=== PATIENT | female | born 1950 | race Caucasian/White ===

== ENCOUNTER 2018-08-09 09:18 | Inpatient (IN) | payer OTHER ==
[2018-08-01 15:38] LABS: BASOPHILS % (AUTO) 0.2 % (0-1); EOSINOPHILS % (AUTO) 0.7 % (0-6); LYMPHOCYTES # (AUTO) 1.2 X10'3 (1.1-4.8); MEAN CORPUSCULAR HEMOGLOBIN 28.8 PG (27.0-31.0); MEAN CORPUSCULAR HGB CONC 32.2 % (33.0-36.5); MEAN CORPUSCULAR VOLUME 89.5 FL (78-98); MEAN PLATELET VOLUME 7.5 FL (7.4-10.4); MONOCYTES # (AUTO) 0.4 X10'3 (0-0.9); MONOCYTES % (AUTO) 6.4 % (2-12); NEUTROPHILS # (AUTO) 5.1 X10'3 (1.8-7.7); NEUTROPHILS % (AUTO) 75.7 % (42-75); PRE OP HEMATOCRIT 41.7 % (35.0-45.0); PRE OP HEMOGLOBIN 13.4 g/dL (12.0-16.0); PRE OP PLATELET COUNT 325 X10'3 (140-440); RED BLOOD COUNT 4.66 X10'6 (4.20-5.60); RED CELL DISTRIBUTION WIDTH 14.8 % (11.5-14.5)
[2018-08-01 15:54] LABS: ALBUMIN 3.6 G/DL (3.4-5.0); ALBUMIN/GLOBULIN RATIO 1.1 (1.1-1.5); ALKALINE PHOSPHATASE 76 IU/L (46-116); BLOOD UREA NITROGEN 25 MG/DL (7-18); BUN/CREATININE RATIO 22.5 (6.6-38.0); CALCIUM 9.1 MG/DL (8.5-10.1); CHLORIDE 104 MMOL/L (99-107); CREATININE 1.11 MG/DL (0.40-0.90); PRE OP ALT 19 U/L (30-65); PRE OP ANION GAP 5 (8-16); PRE OP AST 12 U/L (10-37); PRE OP BILIRUB, TOTAL 0.2 MG/DL (0.0-1.0); PRE OP GLUCOSE 107 MG/DL (70-104); PRE OP POTASSIUM 4.1 MMOL/L (3.4-5.1); PRE OP SODIUM 142 MMOL/L (135-145); TOTAL CARBON DIOXIDE 32.7 MMOL/L (24-32); TOTAL PROTEIN 6.9 G/DL (6.4-8.2); eGFR 49 ML/MIN
[2018-08-01 16:02] LABS: CLARITY,URINE CLEAR (Clear); COLOR,URINE YELLOW (Yellow); GLUCOSE, URINE NEGATIVE (Neg); KETONES,URINE NEGATIVE (Neg); LEUKOCYTE ESTERASE ,URINE NEGATIVE (Neg); NITRITES, URINE NEGATIVE (Neg); OCCULT BLOOD,URINE TRACE-INTACT (Neg); PROTEIN,URINE NEGATIVE (Neg); UROBILINOGEN,URINE 0.2 E.U/dL (0.2-1.0)
[2018-08-01 16:11] LABS: UA COLLECTION TYPE CLN CATCH MIDSTREAM
[2018-08-01 16:13] LABS: BACTERIA,URINE FEW /HPF (Neg); RBC,URINE 0-2 /HPF (0-2); SQUAMOUS EPITHELIAL CELL,UR FEW /LPF (FEW); WBC,URINE NONE SEEN /HPF (0-4)
[2018-08-07 16:30] VITALS: BP 89/54
[2018-08-07 17:00] VITALS: BP 100/45
[2018-08-07 17:30] VITALS: BP 97/52
[2018-08-09] VITALS (15 sets, daily range): BP systolic 82–125; BP diastolic 43–86
[~2018-08-09] VITALS: Ht 162.6 cm; Wt 84.8 kg
[2018-08-09] MEDS: acetaminophen 325mg tablet PO ONE ×2 (05:30→10:02)
[2018-08-09] MEDS: ascorbic acid 500mg tablet PO SCH ×2 (08:00→20:11)
[2018-08-09] MEDS: multivitamins, therapeutics tablet PO SCH (08:00)
[2018-08-09] MEDS: gabapentin 300mg capsule PO SCH ×3 (08:00→20:11)
[2018-08-09] MEDS: aspirin 325mg tablet PO SCH (08:30)
[~2018-08-09 09:18] MED LIST: ACET-2119 PO; ASPI-1140 PO; BACL10TA2 PO; CALC600T12 PO; DIPH25CA83 PO; HYDR-3972 PO; HYDROmorphone 1 mg/ml syringe IV PRN; MAGN400C PO; OMEP-50 PO; TRAZ-219 PO; acetaminophen 325mg tablet PO PRN; baclofen 10mg tablet PO PRN; bisacodyl 10mg suppository rectal RC PRN; cefazolin/dext.iso 2gm/100 ML IV ONE; cefazolin/dext.iso 2gm/50ml 50 ML IV SCH; diphenhydrAMINE 25mg capsule PO PRN; famotidine 20mg tablet PO ONE; gabapentin 300mg capsule PO ONE; magnesium hydroxide 30ml (MOM) UD suspension PO PRN; metoclopramide 5 mg/ml inj IV ONE; non-formulary drug (Omeprazole 1 TAB) PO SCH; oxyCODONE SR 10mg (sust. release) tab -2 tabs (20mg) PO ONE; oxyCODONE/APAP 5-325mg tablet PO PRN; ringers solution, lacted 1,000 ML IV SCH; tranexamic acid inj. 1,000 MG in normal saline 100ml IV soln 90 ML IV ONE; vancomycin inj 1,500 MG in normal saline 300ml IV soln IV ONE
[2018-08-09] MEDS ORDERED: LIDOcaine 1% (10mg/ml) 2ml vial ONE (09:45)
[2018-08-09] MEDS ORDERED: ringers solution, lacted 1,000 ML IV SCH (10:06)
[2018-08-09] MEDS ORDERED: celeCOXIB 100mg capsule PO ONE (10:09)
[2018-08-09] MEDS ORDERED: morphine 4 MG/ML inj SYRINge IV PRN ×2 (10:10)
[2018-08-09] MEDS ORDERED: ondansetron/PF 4mg/2ml inj IV PRN (10:10)
[2018-08-09] MEDS ORDERED: meperidine/PF 25mg/ml syringe IV PRN ×3 (10:10)
[2018-08-09] MEDS ORDERED: proCHLORperazine 10 MG/2 ml inj IV PRN (10:10)
[2018-08-09] MEDS ORDERED: ketorolac trometh. 30mg/ml inj. ONE (11:43)
[2018-08-09] MEDS ORDERED: MIDAZolam 1mg/ml 10ml vial ONE (11:43)
[2018-08-09] MEDS ORDERED: fentaNYL/PF 50MCG/1 ML 2ML syringe ONE (11:43)
[2018-08-09] MEDS ORDERED: cloNIDine hcl/PF 100mcg/ml inj ONE (11:44)
[2018-08-09] MEDS ORDERED: ROPIVAcaine 0.5% (5mg/ml) 30ml vial ONE ×2 (11:44→14:07)
[2018-08-09] MEDS ORDERED: epiNEPHrine 1 mg/ml inj ONE (11:44)
[2018-08-09] MEDS ORDERED: vancomycin 1,000mg inj ONE (11:44)
[2018-08-09] MEDS ORDERED: BUPIVAcaine/dex-water/PF 7.5 mg/ml 2ml ampul ONE (12:29)
[2018-08-09] MEDS ORDERED: propofol inj 20 ML IV ONE (12:33)
[2018-08-09] MEDS: potassium cl 20mEq in 1/2 NS 1,000 ML IV SCH ×3 (15:24→23:24)
[2018-08-09] MEDS: cefazolin/dext.iso 2gm/50ml 50 ML IV SCH (19:00)
[2018-08-09] MEDS ORDERED: tranexamic acid inj. 1,000 MG in normal saline 100ml IV soln 100 ML IV ONE (19:30)
[2018-08-09] MEDS: sennosides 8.6mg tablet PO SCH (20:11)
[2018-08-09] MEDS: magnesium oxide 400mg tablet PO SCH (20:11)
[2018-08-09] MEDS: oxyCODONE/APAP 10/325mg tablet PO PRN (20:12)
[2018-08-09] MEDS: traZODone 50mg tablet PO SCH (20:12)
[2018-08-09] MEDS ORDERED: non-formulary drug (Trazodone HCl 1 TAB) PO SCH (21:00)
[2018-08-09] MEDS ORDERED: non-formulary drug (Magnesium Oxide (Magnesium) 2 CAP) PO SCH (21:00)
[2018-08-09] MEDS: HYDROmorphone 1 mg/ml syringe IV PRN (21:51)
[2018-08-10] MEDS: oxyCODONE/APAP 10/325mg tablet PO PRN ×6 (00:18→23:44)
[2018-08-10 02:00] VITALS: BP 109/54
[2018-08-10] MEDS: cefazolin/dext.iso 2gm/50ml 50 ML IV SCH ×3 (02:51→19:35)
[2018-08-10 06:00] VITALS: BP 123/67
[2018-08-10] MEDS: aspirin 325mg tablet PO SCH (07:46)
[2018-08-10] MEDS: ascorbic acid 500mg tablet PO SCH ×2 (07:46→19:36)
[2018-08-10] MEDS: gabapentin 300mg capsule PO SCH ×3 (07:46→22:14)
[2018-08-10] MEDS: multivitamins, therapeutics tablet PO SCH (07:46)
[2018-08-10] MEDS: pantoprazole 40mg Tablet.DR PO SCH (07:46)
[2018-08-10] MEDS: potassium cl 20mEq in 1/2 NS 1,000 ML IV SCH ×3 (07:47→22:13)
[2018-08-10 07:48] LABS: BASOPHILS % (AUTO) 0.1 % (0-1); EOSINOPHILS # (AUTO) 0.1 X10'3 (0-0.9); EOSINOPHILS % (AUTO) 0.9 % (0-6); HEMATOCRIT 36.2 % (35.0-45.0); HEMOGLOBIN 11.6 g/dl (12.0-16.0); LYMPHOCYTES # (AUTO) 0.8 X10'3 (1.1-4.8); LYMPHOCYTES % (AUTO) 7.9 % (21-51); MEAN CORPUSCULAR HEMOGLOBIN 28.9 PG (27.0-31.0); MEAN CORPUSCULAR HGB CONC 32.2 % (33.0-36.5); MEAN CORPUSCULAR VOLUME 89.9 FL (78-98); MEAN PLATELET VOLUME 8.1 FL (7.4-10.4); MONOCYTES # (AUTO) 0.5 X10'3 (0-0.9); NEUTROPHILS # (AUTO) 8.9 X10'3 (1.8-7.7); NEUTROPHILS % (AUTO) 86.1 % (42-75); PLATELET COUNT 230 X10'3 (140-440); RED BLOOD COUNT 4.03 X10'6 (4.20-5.60); RED CELL DISTRIBUTION WIDTH 14.2 % (11.5-14.5); WHITE BLOOD COUNT 10.3 X10'3 (4.5-11.0)
[2018-08-10 09:04] LABS: TOTAL CARBON DIOXIDE 27.4 MMOL/L (24-32)
[2018-08-10 09:24] LABS: ANION GAP 9 (8-16); CHLORIDE 105 MMOL/L (99-107); POTASSIUM 4.5 MMOL/L (3.5-5.1); SODIUM 139 MMOL/L (135-145)
[2018-08-10] MEDS ORDERED: ASPI-1 PO (09:37)
[2018-08-10 10:00] VITALS: BP 131/56
[2018-08-10] MEDS: ondansetron/PF 4mg/2ml inj IV PRN ×2 (12:17→19:36)
[2018-08-10 14:00] VITALS: BP 135/53
[2018-08-10 18:00] VITALS: BP 129/55
[2018-08-10] MEDS: lactobacillus rhamnosus 10,000 MMU CELLS/CAPSULE PO SCH (19:36)
[2018-08-10] MEDS: celeCOXIB 100mg capsule PO SCH (19:36)
[2018-08-10] MEDS: sennosides 8.6mg tablet PO SCH (21:00)
[2018-08-10 22:00] VITALS: BP 147/62
[2018-08-10] MEDS: HYDROmorphone 1 mg/ml syringe IV PRN (22:12)
[2018-08-10] MEDS: magnesium oxide 400mg tablet PO SCH (22:14)
[2018-08-10] MEDS: traZODone 50mg tablet PO SCH (22:14)
[2018-08-11] MEDS: HYDROmorphone 1 mg/ml syringe IV PRN (02:27)
[2018-08-11] MEDS: cefazolin/dext.iso 2gm/50ml 50 ML IV SCH (02:32)
[2018-08-11] MEDS: oxyCODONE/APAP 10/325mg tablet PO PRN ×3 (04:48→14:08)
[2018-08-11 06:00] VITALS: BP 131/69
[2018-08-11 06:24] LABS: BASOPHILS % (AUTO) 0.2 % (0-1); EOSINOPHILS # (AUTO) 0.1 X10'3 (0-0.9); HEMATOCRIT 35.9 % (35.0-45.0); HEMOGLOBIN 11.7 g/dl (12.0-16.0); LYMPHOCYTES # (AUTO) 0.9 X10'3 (1.1-4.8); LYMPHOCYTES % (AUTO) 10.3 % (21-51); MEAN CORPUSCULAR HEMOGLOBIN 29.1 PG (27.0-31.0); MEAN CORPUSCULAR HGB CONC 32.5 % (33.0-36.5); MEAN CORPUSCULAR VOLUME 89.5 FL (78-98); MEAN PLATELET VOLUME 7.8 FL (7.4-10.4); MONOCYTES # (AUTO) 0.8 X10'3 (0-0.9); MONOCYTES % (AUTO) 8.8 % (2-12); NEUTROPHILS % (AUTO) 79.7 % (42-75); PLATELET COUNT 236 X10'3 (140-440); RED BLOOD COUNT 4.01 X10'6 (4.20-5.60); RED CELL DISTRIBUTION WIDTH 14.1 % (11.5-14.5); WHITE BLOOD COUNT 8.8 X10'3 (4.5-11.0)
[2018-08-11] MEDS: aspirin 325mg tablet PO SCH (07:55)
[2018-08-11] MEDS: multivitamins, therapeutics tablet PO SCH (07:57)
[2018-08-11] MEDS: celeCOXIB 100mg capsule PO SCH (07:57)
[2018-08-11] MEDS: gabapentin 300mg capsule PO SCH ×2 (07:57→14:09)
[2018-08-11] MEDS: lactobacillus rhamnosus 10,000 MMU CELLS/CAPSULE PO SCH (07:57)
[2018-08-11] MEDS: ascorbic acid 500mg tablet PO SCH (07:57)
[2018-08-11] MEDS: pantoprazole 40mg Tablet.DR PO SCH (07:57)
[2018-08-11 10:00] VITALS: BP 152/66
== END 2018-08-11 15:45 | disposition home or self-care (01) | DRG 470 ==
LOC: PAS IN 09:18 → EDSTATUS 10:30 → ORTHO 4S 15:50
PROVIDERS: ADMIT Orthopaedic Surgery; ATTEND Orthopaedic Surgery
PROC: 8E0Y0CZ Robotic Assisted Procedure of Lower Extremity, Open Approach (ICD-10-PCS; 2018-08-09)
PROC: 3E0T3BZ Introduction of Anesthetic Agent into Peripheral Nerves and Plexi, Percutaneous Approach (ICD-10-PCS; 2018-08-09)
PROC: 0SRC0J9 Replacement of Right Knee Joint with Synthetic Substitute, Cemented, Open Approach (ICD-10-PCS; principal; 2018-08-09 11:52)
DX: M17.11 Unilateral primary osteoarthritis, right knee (principal); D62 Acute posthemorrhagic anemia; K21.9 Gastro-esophageal reflux disease without esophagitis; M54.5 Low back pain; G89.4 Chronic pain syndrome; Z79.899 Other long term (current) drug therapy
CPT/HCPCS: 36415; 71046; 73560; 80051; 80053; 81001; 85025; 85610; 85730; 86885; 86900; 86901; 87070; 97110; 97116; 97162; 97530; A6449; A6455; A7000; C1713; C1758; C1776; G0378; J0171; J0690; J0735; J1170; J1885; J2250; J2405; J2704; J2765; J2795; J3010; J3370; J3490; J7030; J7120